=== PATIENT | female | born 1960 | race Caucasian/White ===

== ENCOUNTER → 2016-07-13 | Outpatient (CLI) | payer OTHER | END | disposition home or self-care (01) | LOC: AMB 12:51 | PROC: B01B1ZZ Fluoroscopy of Spinal Cord using Low Osmolar Contrast (ICD-10-PCS; principal; 2016-07-13) | DX: M48.02 Spinal stenosis, cervical region (principal); M54.2 Cervicalgia; R53.1 Weakness | CPT/HCPCS: 62302; 72126 ==